=== PATIENT | female | born 1975 | race Caucasian/White ===

== ENCOUNTER → 2020-06-22 | Day surgery (SDC) | payer OTHER ==
[~2020-06-22] MED LIST: ATARAX25 MG PO; BISOPROLOL FUMAR5 MG PO; CYMBALTA 30MG C30 MG PO; FLEXERIL5 MG PO; HYDROCODON-ACE1 EAC2 PO; METFORMIN HCL1000 MG PO; NEURONTIN400 MG PO; RISPERDAL 1MG TA1 MG PO
[2020-06-22 07:17] LABS: HCG (URINE) SCREEN NEGATIVE (NEGATIVE)
[2020-06-22 07:52] LABS: BASOPHIL 0.9 % (0-2); HCT 43.2 % (37.0-47.0); HGB 14.7 g/dl (12.5-16.0); MCH 31.6 pg (25.0-31.0); MCV 92.9 fL (78.0-100.0); MONOCYTE 7.1 % (0-12); MPV 10.6 fL (6.0-9.5); NEUTROPHIL 65.6 % (41-80); NRBC 0; PLT 265 K/uL (150-400); RBC 4.65 M/uL (4.20-5.40); RDW 13.2 % (11.5-14.0); WBC 9.7 K/uL (4.0-10.5)
[2020-06-22 08:12] LABS: CREATININE 0.7 mg/dL (0.51-0.95); POTASSIUM 3.7 mmol/L (3.5-5.1)
== END | disposition home or self-care (01) ==
LOC: FAS 06:41
PROVIDERS: Oral & Maxillofacial Surgery
DX: K02.63 Dental caries on smooth surface penetrating into pulp (principal); K04.7 Periapical abscess without sinus; I10 Essential (primary) hypertension; J44.9 Chronic obstructive pulmonary disease, unspecified; F32.9 Major depressive disorder, single episode, unspecified; Q63.1 Lobulated, fused and horseshoe kidney; K58.9 Irritable bowel syndrome, unspecified; E11.9 Type 2 diabetes mellitus without complications; F17.210 Nicotine dependence, cigarettes, uncomplicated; E66.01 Morbid (severe) obesity due to excess calories; Z68.38 Body mass index [BMI] 38.0-38.9, adult; Z79.84 Long term (current) use of oral hypoglycemic drugs; Z87.442 Personal history of urinary calculi; Z87.448 Personal history of other diseases of urinary system
CPT/HCPCS: D7140; D7210; 36415; 71045; 80048; 84703; 85025; 93005; J1100; J2250; J2405; J2704; J7120